=== PATIENT | male | born 1970 | race Caucasian/White ===

== ENCOUNTER 2022-06-01 16:28 | Emergency (ER) | payer OTHER ==
[~2022-06-01] VITALS: Ht 162.6 cm; Wt 62.6 kg
[2022-06-01 17:46] VITALS: BP 162/117
--- NOTE | 2022-06-01 19:45 | NUR ---
Patient resting in bed, A/Ox4, chest rise and fall symmetrical, no s/s of distress, on monitor.
--- NOTE | 2022-06-01 19:53 | NUR ---
ER Physician and Charge Nurse Sisi RHODES at bedside with patient.
[2022-06-01 20:56] VITALS: BP 164/100
--- NOTE | 2022-06-01 20:57 | NUR ---
Patient discharged with v/s stable. Written and verbal after care instructions given and explained. Patient verbalized understanding. Ambulatory with steady gait. All questions addressed prior to discharge. Advised to follow up with PMD.
== END 2022-06-01 20:56 | disposition home or self-care (01) ==
LOC: MED 16:28
DX: R07.9 Chest pain, unspecified (principal); R60.0 Localized edema; E11.9 Type 2 diabetes mellitus without complications; Z98.890 Other specified postprocedural states
CPT/HCPCS: 93005; 99283